=== PATIENT | female | born 1975 | race Caucasian/White ===

== ENCOUNTER 2023-01-30 10:15 | Day surgery (SDC) | payer OTHER ==
[~2023-01-30] VITALS: Ht 154.9 cm; Wt 70.3 kg
[~2023-01-30 10:15] MED LIST: K-RIGHT SOFTGE1 EACH PO; MULTI VITAMIN1 EACH PO; OMEPRAZOLE40 MG PO
[2023-01-30 10:46] VITALS: BP 149/89
--- NOTE | 2023-01-30 12:57 | NUR ---
01/30/23 1257 Valerie Beltran 1228 PT TO PACU AWAKE BUT GROGGY, ASKS QUESTIONS. ON 2L O2 VIA NC, RESP EVEN WITHOUT LABOR. 1230 PT O2 DC'D. MAINTAINS SA02 AT 98% 1245 PT SIPPING ON WATER, TOLERATING WELL. 1250 DR PETERSON AT BEDSIDE TALKING WITH PT. PT AWAKE AND ASKING QUESTIONS.
[2023-01-30 13:13] VITALS: BP 104/65
--- NOTE | 2023-01-31 10:09 | OR ---
[facility] [address] [place], [place] [address] Signed DATE OF OPERATION: 01/30/2023 SURGEON: Chacho Peterson MD PREOPERATIVE DIAGNOSES: 1. Gastroesophageal reflux symptoms. 2. Screening colonoscopy. POSTOPERATIVE DIAGNOSES: 1. Hiatal hernia with mild distal esophagitis. 2. Diverticular changes sigmoid and left colon. 3. Small pedunculated polyp sigmoid (excised). PROCEDURES: 1. Esophagogastroduodenoscopy with biopsy. 2. Total colonoscopy to cecum with cold snare polypectomy x1. ANESTHESIA: Intravenous sedation; fentanyl 200 mcg and Versed 10 mg, total. INDICATION: This 47-year-old white woman is a patient of DENIS Mendoza. She has had complaints of gastroesophageal reflux for which she has taken PPI medication with good benefit. She has no persistent dysphagia, though does have occasions of it but no hematemesis. Additionally given her age, colon screening has been considered. She has no family history of colon cancer and no symptoms related to the colon. She is admitted to undergo upper endoscopy and concurrent colonoscopy. She understands the risk of bleeding, infection, and perforation. FINDINGS: Upper endoscopy confirmed hiatal hernia and only minimal distal esophagitis. There was no evidence of Pillai epithelium or other abnormality. The colon was well prepped. Complete colonoscopy was undertaken with good visualization of the cecum. There was a single small slightly pedunculated polyp of the sigmoid, which was excised with cold snare technique. Numerous diverticula were noted of the sigmoid and left colon. DESCRIPTION OF PROCEDURE: The patient was brought to the endoscopy suite, given topical Hurricaine hypopharyngeal Electronically Signed By: CHACHO PETERSON MD 01/31/23 1009 PATIENT NAME: LEYLA JAY OPERATIVE REPORT DATE OF : 79 REPORT #: [id number] PHYSICIAN: CHACHO PETERSON MD PCP: NATAN FULLER REPORT IS CONFIDENTIAL AND NOT TO BE RELEASED WITHOUT AUTHORIZATION [facility] [address] [place], [place] [address] Signed anesthesia with lidocaine spray. Intravenous sedation was given with intravenous Versed and fentanyl. Full cardiopulmonary monitoring was maintained. A bite block was placed. An Olympus video upper endoscope was passed in the hypopharynx. The vocal cords were visualized as normal. The scope was advanced to the esophagus and throughout its length it appeared essentially normal. There was minimal distal esophagitis, but no Pillai's epithelium, stricture, neoplasm or varices. The scope was advanced to the stomach which was insufflated with air. Excess gastric juices were suctioned free. There was no sign of bile in the stomach. Rugal folds were normal. The antrum was normal as was the pylorus. The scope was passed through it into the duodenum, which was normal. Biopsies were taken of the duodenum and the scope withdrawn and biopsies then taken of the antrum. Retroflexed view of the stomach showed a moderate-sized hiatal hernia. Scope was straightened and withdrawn and biopsies taken of the distal esophagus as well as the mid esophagus. The scope was withdrawn and removed. Plans were then made for colonoscopy. Digital rectal examination was performed and normal. An Olympus video colonoscope was passed in the rectum and manipulated throughout the colon noting diverticular change of the sigmoid and left colon. Scope was ultimately advanced to the cecum. The ileocecal valve and appendiceal orifice appeared normal. Scope was withdrawn and examination showed no sign of abnormality other than diverticulosis until the mid sigmoid where a small minimally pedunculated polyp was noted, this was excised cold snare technique and passed for pathology. Further withdrawal showed no other abnormality. Retroflexed view of the rectum was normal. Scope was removed and the patient was taken to the recovery room in good condition. CONCLUDING DIAGNOSES: 1. Hiatal hernia with minimal distal esophagitis. 2. Sigmoid diverticulosis with polyp x1. PLAN: 1. Recommend continued use of PPI medication for symptomatic control of reflux disease. 2. Repeat colonoscopy in 5 years based on polyp. Recommend high-fiber diet. The patient will return to the ongoing care of DENIS Mendoza. MD SAVITA Abraham/HILARY Electronically Signed By: CHACHO PETERSON MD 01/31/23 1009 PATIENT NAME: LEYLA JAY OPERATIVE REPORT DATE OF : 79 REPORT #: [id number] PHYSICIAN: CHACHO PETERSON MD PCP: NATAN FULLER REPORT IS CONFIDENTIAL AND NOT TO BE RELEASED WITHOUT AUTHORIZATION [facility] [address] [facility] [place] [address] Signed /[id number] cc: DENIS Mendoza. Copies: ~ Electronically Signed By: CHACHO PETERSON MD 01/31/23 1009 PATIENT NAME: LEYLA JAY OPERATIVE REPORT DATE OF : 79 REPORT #: [id number] PHYSICIAN: CHACHO PETERSON MD PCP: NATAN FULLER REPORT IS CONFIDENTIAL AND NOT TO BE RELEASED WITHOUT AUTHORIZATION
--- NOTE | 2023-02-02 12:26 | PATH ---
[facility] [address] [facility] [place] [address] Signed SPECIMEN(S): A DUODENAL BIOPSY SPECIMEN(S): B ANTRUM/PYLORUS BIOPSY SPECIMEN(S): C LOWER ESOPHAGEAL BIOPSY SPECIMEN(S): D MIDDLE ESOPHAGEAL BIOPSY SPECIMEN(S): E SIGMOID POLYP SPECIMEN(S): F RECTOSIGMOID POLYP SPECIMEN SOURCE: A. DUODENAL BIOPSY B. ANTRUM/PYLORUS BIOPSY C. LOWER ESOPHAGEAL BIOPSY D. MIDDLE ESOPHAGEAL BIOPSY E. SIGMOID POLYP F. RECTOSIGMOID POLYP CLINICAL HISTORY: GERD with esophagitis. EGD postop: Hiatal hernia. Colon postop: Diverticulosis, polyps x 3. FINAL PATHOLOGIC DIAGNOSIS: A. Duodenal biopsy: - Benign duodenal mucosa, negative for specific diagnostic abnormality. B. Antrum / pylorus biopsy: - Benign gastric-type mucosa with focal slight chronic inflammation. - Negative for evidence of Helicobacter organisms on routine HE-stained sections. C. Lower esophageal biopsy: - Benign esophageal and gastric-type mucosa with focal slight chronic inflammation. - Negative for specialized intestinal metaplasia or dysplasia. D. Mid esophageal biopsy: - Benign esophageal mucosa, negative for increased epithelial eosinophils. E. Sigmoid polyp: - Tubular adenoma (one fragment). F. Rectosigmoid polyp: - Hyperplastic polyp (one fragment). [id number] MICROSCOPIC EXAMINATION: Histologic sections of all submitted blocks are examined by light microscopy. These findings, together with the gross examination, support the pathologic PATIENT NAME: LEYLA JAY PATHOLOGY DATE OF : 79 REPORT #: [id number] PHYSICIAN: VICTOR MANUEL HANDLEY PCP: NATAN FULLER REPORT IS CONFIDENTIAL AND NOT TO BE RELEASED WITHOUT AUTHORIZATION [facility] [address] [place], [place] [address] Signed diagnosis. GROSS DESCRIPTION: A. The specimen, labeled and designated "Jay, duodenum biopsy," is received in formalin and consists of five quevedo soft tissue fragments, ranging from 0.1-0.2 cm. Entirely submitted in (A1). B. The specimen, labeled and designated "Jay, antrum biopsy," is received in formalin and consists of two quevedo soft tissue fragments, ranging from 0.1-0.2 cm. Entirely submitted in (B1). C. The specimen, labeled and designated "Jay, lower esophagus biopsy," is received in formalin and consists of two quevedo soft tissue fragments, ranging from 0.1-0.2 cm. Entirely submitted in (C1). D. The specimen, labeled and designated "Jay, middle esophagus biopsy," is received in formalin and consists of one quevedo soft tissue fragment, 0.2 cm. Entirely submitted in (D1). E. The specimen, labeled and designated "Jay, sigmoid colon polyp," is received in formalin and consists of one quevedo soft tissue fragment, 0.5 cm. Specimen is bisected and entirely submitted in (E1). F. The specimen, labeled and designated "Jay, rectosigmoid colon polyp," is received in formalin and consists of one quevedo soft tissue fragment, 0.2 cm. Entirely submitted in (F1). JS (under the direct supervision of a pathologist) The Gross Description was prepared using a voice recognition system. The report was reviewed for accuracy; however, sound-alike word errors, addition and/or deletions may occur. If there is any question about this report, please contact Client Services. PERFORMING LABORATORY: The technical component was performed by [facility], [facility]ishmael [facility] [place] [address] (CLIA# [id number]). Professional interpretation was performed by [facility] - [facility], [address] [place], [place] [address]., [place] [address] (CLIA#: [id number]). Diagnostician: Efra Flood MD Pathologist Electronically Signed 02/02/2023 Copies: PATIENT NAME: LEYLA JAY PATHOLOGY DATE OF : 79 REPORT #: [id number] PHYSICIAN: VICTOR MANUEL PATHOLOGY PCP: NATAN FULLER REPORT IS CONFIDENTIAL AND NOT TO BE RELEASED WITHOUT AUTHORIZATION [facility] [address] [place], [place] [address] Signed ~ PATIENT NAME: LEYLA JAY PATHOLOGY DATE OF : 79 REPORT #: [id number] PHYSICIAN: VICTOR MANUEL HANDLEY PCP: NATAN FULLER REPORT IS CONFIDENTIAL AND NOT TO BE RELEASED WITHOUT AUTHORIZATION
== END 2023-01-30 13:28 | disposition home or self-care (01) ==
LOC: OPS 10:15 → DS 10:20 → OPS 11:30 → DS 14:00 → OPS 14:00
PROVIDERS: ATTEND Surgery
PROC: 0DBN8ZZ Excision of Sigmoid Colon, Via Natural or Artificial Opening Endoscopic (ICD-10-PCS; 2023-01-30)
PROC: 0DB98ZX Excision of Duodenum, Via Natural or Artificial Opening Endoscopic, Diagnostic (ICD-10-PCS; principal; 2023-01-30 11:30)
PROC: 0DB68ZX Excision of Stomach, Via Natural or Artificial Opening Endoscopic, Diagnostic (ICD-10-PCS; 2023-01-30 11:30)
DX: Z12.11 Encounter for screening for malignant neoplasm of colon (principal); K21.00 Gastro-esophageal reflux disease with esophagitis, without bleeding; F41.9 Anxiety disorder, unspecified; R59.0 Localized enlarged lymph nodes; K44.9 Diaphragmatic hernia without obstruction or gangrene; K57.30 Diverticulosis of large intestine without perforation or abscess without bleeding; D12.5 Benign neoplasm of sigmoid colon
CPT/HCPCS: 84703; 99153; G0500; J2250; J3010; J7121